=== PATIENT | female | born 1970 | race Two or more races ===

== ENCOUNTER 2017-02-05 23:12 | Emergency (ER) | payer MEDICAID ==
[~2017-02-05] VITALS: Ht 162.6 cm; Wt 60.3 kg
[2017-02-05] MEDS ORDERED: LEVO100T10 PO (23:26)
[2017-02-06] MEDS ORDERED: IBUPROFEN 800 MG TABLET PO ONE (00:45)
[2017-02-06] MEDS ORDERED: IBUPROFEN 800 MG TABLET ONE ×2 (00:56→00:59)
--- NOTE | 2017-02-06 01:50 | NUR ---
Patient discharged to home in stable conditon. Written and verbal after care instructions given. Patient verbalizes understanding of instructions.
[2017-02-06 02:00] VITALS: BP 120/70
== END 2017-02-06 01:50 | disposition home or self-care (01) ==
LOC: ER 23:21
DX: S23.29XA Dislocation of other parts of thorax, initial encounter (principal); Z85.850 Personal history of malignant neoplasm of thyroid; X58.XXXA Exposure to other specified factors, initial encounter; Y93.89 Activity, other specified; Y99.8 Other external cause status; Y92.89 Other specified places as the place of occurrence of the external cause
CPT/HCPCS: 71010; 99283; A4663

== ENCOUNTER 2019-05-17 10:40 | Emergency (ER) | payer MEDICAID ==
[~2019-05-17] VITALS: Ht 162.6 cm; Wt 61.2 kg
[~2019-05-17 10:40] MED LIST: LEVO100T10 PO
--- NOTE | 2019-05-17 11:11 | NUR ---
at bedside to examine patient.
[2019-05-17] MEDS ORDERED: SILVER SULFADIAZINE 1% CREAM 50 GM TP ONE (11:15)
[2019-05-17] MEDS ORDERED: SILVER SULFADIAZINE 1% CREAM 25 GM TUBE TP ONE (11:26)
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
== END 2019-05-17 11:37 | disposition home or self-care (01) ==
LOC: ER 10:40
DX: T22.212A Burn of second degree of left forearm, initial encounter (principal); M54.41 Lumbago with sciatica, right side; Z79.899 Other long term (current) drug therapy; X13.1XXA Other contact with steam and other hot vapors, initial encounter; Y93.89 Activity, other specified; Y92.89 Other specified places as the place of occurrence of the external cause; Y99.8 Other external cause status
CPT/HCPCS: 16020; A4663

== ENCOUNTER 2022-09-10 21:59 | Emergency (ER) | payer BC, MEDICAID ==
[~2022-09-10] VITALS: Ht 162.6 cm; Wt 62.1 kg
[2022-09-10] MEDS ORDERED: BUDE8.43 NS (23:15)
[2022-09-10] MEDS ORDERED: AMOX-430 PO (23:15)
--- NOTE | 2022-09-10 23:25 | NUR ---
Patient discharged to home in stable condition. Written and verbal after care instructions given. Patient verbalizes understanding of instructions. Stressed follow up or return to ER for worsening s/s.
[2022-09-10 23:26] VITALS: BP 133/92
== END 2022-09-10 23:27 | disposition home or self-care (01) ==
LOC: ER 21:59
DX: J01.90 Acute sinusitis, unspecified (principal); Z85.850 Personal history of malignant neoplasm of thyroid; E89.0 Postprocedural hypothyroidism; Z79.890 Hormone replacement therapy
CPT/HCPCS: A4663

== ENCOUNTER 2023-09-22 20:32 | Emergency (ER) | payer BC, MEDICAID ==
[~2023-09-22] VITALS: Ht 154.9 cm; Wt 63.5 kg
[~2023-09-22 20:32] MED LIST changes: +AMOX-430 PO; +BUDE8.43 NS
[2023-09-22] MEDS ORDERED: IBUPROFEN 800 MG TABLET ONE (21:26)
[2023-09-22] MEDS ORDERED: IBUPROFEN 800 MG TABLET PO ONE (21:30)
[2023-09-22] MEDS ORDERED: IBUP800T54 PO (22:55)
[2023-09-22 23:05] VITALS: BP 128/88; TEMP 98.5; O2SAT 99
== END 2023-09-22 23:05 | disposition home or self-care (01) ==
LOC: ER 20:37
DX: S93.402A Sprain of unspecified ligament of left ankle, initial encounter (principal); Z90.89 Acquired absence of other organs; Z79.1 Long term (current) use of non-steroidal anti-inflammatories (NSAID); Z79.2 Long term (current) use of antibiotics; Z79.899 Other long term (current) drug therapy; X50.1XXA Overexertion from prolonged static or awkward postures, initial encounter; Y93.89 Activity, other specified; Y92.89 Other specified places as the place of occurrence of the external cause; Y99.8 Other external cause status
CPT/HCPCS: 73610; A4606; A4663

== ENCOUNTER 2025-06-05 13:30 | Emergency (ER) | payer BC ==
[~2025-06-05] VITALS: Ht 157.5 cm; Wt 63.5 kg
[~2025-06-05 13:30] MED LIST changes: +IBUP800T54 PO
[2025-06-05 13:42] VITALS: BP 117/71
[2025-06-05] MEDS ORDERED: MELO15TA13 PO (15:01)
[2025-06-05 15:14] VITALS: BP 120/68; O2SAT 99
== END 2025-06-05 15:10 | disposition home or self-care (01) ==
LOC: ER 13:30
DX: S46.092A Other injury of muscle(s) and tendon(s) of the rotator cuff of left shoulder, initial encounter (principal); Z79.1 Long term (current) use of non-steroidal anti-inflammatories (NSAID); Z85.850 Personal history of malignant neoplasm of thyroid; Z90.89 Acquired absence of other organs; X58.XXXA Exposure to other specified factors, initial encounter; Y93.89 Activity, other specified; Y92.89 Other specified places as the place of occurrence of the external cause; Y99.8 Other external cause status
CPT/HCPCS: 73030; A4606; A4663